=== PATIENT | male | born 1995 | race African-American/Black ===

== ENCOUNTER 2016-11-23 02:34 | Emergency (ER) | payer MEDICAID ==
[2016-11-23] MEDS ORDERED: OLANZapine 10 MG/2 ML VIAL IM ONE ×2 (02:49→03:18)
[2016-11-23] MEDS ORDERED: LORazepam 2 MG/ML INJ ONE (02:51)
--- NOTE | 2016-11-23 03:01 | EDPHY ---
HPI/HX/ROS/PE/MDM Narrative: Chief complaint: Suicidal, aggressive, alcohol intoxication HPI: 21-year-old male was brought to the crisis center by a friend after expressing suicidal ideation. Patient reports that he witnessed a friend a week ago and is feeling suicidal and angry about this. Patient does admit to drinking alcohol this morning. At the crisis Center patient was agitated and police were called. He has been placed on a mental health hold by the police department. Patient also states that he does have a history of schizophrenia but is declining answer as to whether he is taking medications. Denies any recent injuries. Denies any other ingestions other than alcohol. No fevers or chills. No chest pain or shortness of breath . No nausea or vomiting. Patient is not answering any further questions . Review of systems is unobtainable as the patient is uncooperative Physical exam: Gen: Awake, Alert, agitated, insulting profane, smells of alcohol HEENT: Nose: no rhinorrhea Eyes: PERRLA, EOMI Mouth: Moist mucosa Neck: Supple, no JVD Chest: No distress Heart: Normal perfusion Abd: Normal inspection Ext: no edema Skin: no rash Neuro: CN II-XII intact, Sensation grossly intact, Strength 5/5 in bilateral upper and lower extremities (Elvis Vivar) ED Course: 21-year-old intoxicated male with suicidal ideation and agitation. He has been given Zyprexa and Ativan here. Blood in urine have been sent for medical clearance. He has been placed on a mental health hold by police. Pt is sleeping s/p zyprexa and ativan IM. Arousable. EtOH 232. 0700 Pt s/o to Dr Tripathi pending evaluation. (Elvis Vivar) I assumed care of the patient at 0700 pending psychiatric placement. 11:15 a.m.: The patient's breath alcohol level is 0.09. We are waiting further sobriety. I evaluated the patient at 2:30 p.m.. He is adamant that he is not suicidal and would like to be discharged home. The patient does contract for safety. The patient denies making any suicidal statements. He does report having some situational anxiety over seen at a friend who committed suicide. The patient will be discharged and is given follow up with the mental health center. He is given customary return precautions. I have vacated his M1 hold at 2:30 p.m.. (Roberto Tripathi) - Data Points Laboratory Results: Laboratory Results 11/23/16 03:05 11/23/16 03:05 11/23/16 03:05 WBC 6.76 10^3/uL (3.80-9.50) RBC 5.28 10^6/uL (4.40-6.38) Hgb 15.7 g/dL (13.7-17.5) Hct 47.4 % (40.0-51.0) MCV 89.8 fL (81.5-99.8) MCH 29.7 pg (27.9-34.1) MCHC 33.1 g/dL (32.4-36.7) RDW 13.4 % (11.5-15.2) Plt Count 280 10^3/uL (150-400) MPV 9.9 fL (8.7-11.7) Neut % (Auto) 49.0 % (39.3-74.2) Lymph % (Auto) 36.4 % (15.0-45.0) Gove % (Auto) 11.1 % (4.5-13.0) Eos % (Auto) 2.2 % (0.6-7.6) Baso % (Auto) 1.0 % (0.3-1.7) Nucleat RBC Rel Count 0.0 % (0.0-0.2) Absolute Neuts (auto) 3.31 10^3/uL (1.70-6.50) Absolute Lymphs (auto) 2.46 10^3/uL (1.00-3.00) Absolute Monos (auto) 0.75 10^3/uL (0.30-0.80) Absolute Eos (auto) 0.15 10^3/uL (0.03-0.40) Absolute Basos (auto) 0.07 10^3/uL (0.02-0.10) Absolute Nucleated RBC 0.00 10^3/uL (0-0.01) Immature Gran % 0.3 % (0.0-1.1) Immature Gran # 0.02 10^3/uL (0.00-0.10) Sodium 149 H mEq/L (134-144) Potassium 4.6 mEq/L (3.5-5.2) Chloride 111 H mEq/L (97-110) Carbon Dioxide 22 mEq/l (22-31) Anion Gap 16 mEq/L (8-16) BUN 7 mg/dL (7-23) Creatinine 1.2 mg/dL (0.7-1.3) Estimated GFR > 60 Glucose 81 mg/dL (70-100) Calcium 9.2 mg/dL (8.5-10.4) Ethyl Alcohol 232 H mg/dL (0-10) Medications Given: Discontinued Medications Lorazepam (Ativan Injection) 2 mg IM EDNOW ONE Stop: 11/23/16 03:19 Last Admin: 11/23/16 03:10 Dose: 2 mg Olanzapine (Zyprexa Im Injection) 10 mg IM EDNOW ONE Stop: 11/23/16 03:19 Last Admin: 11/23/16 03:10 Dose: 10 mg General Time Seen by Provider: 11/23/16 02:37 Initial Vital Signs: Initial Vital Signs Temperature (C) 36.8 C 11/23/16 03:00 Heart Rate 97 11/23/16 03:00 Respiratory Rate 16 11/23/16 03:00 Blood Pressure 121/81 H 11/23/16 03:00 O2 Sat (%) 97 11/23/16 03:00 O2 Delivery Mode Nasal Cannula O2 (L/minute) 2 Allergies/Adverse Reactions: No Known Allergies Allergy (Verified 10/20/16 21:56) Home Medications: Medication Instructions Recorded Hydrocodone/APAP 5/325 [[place] 1 tab PO Q6 PRN #15 tab 10/05/16 5/325 (RX)] Albuterol 10/09/16 Hydrocodone/Acetaminophen [[place] 1 each PO Q8 #10 tablet 10/20/16 10-325 Tablet] Departure - Departure Disposition: Home, Routine, Self-Care Clinical Impression: Alcohol intoxication Condition: Fair Instructions: Alcohol Intoxication (ED) Additional Instructions: 1. Please follow-up with the mental health resources provided in the ED today. 2. [facility] does operate a 15/05 psychiatric crisis unit located at [address] [place] [address]. The telephone number for the 24 hour crisis center is [phone]. 3. Please return to the ED if you are feeling suicidal, having thoughts of harming yourself/others or should you feel unsafe or have worsening symptoms. Referrals: [facility] [Outside] - As per Instructions
[2016-11-23 03:12] LABS: % IMMATURE GRANULYOCYTES 0.3 % (0.0-1.1); ABSOLUTE IMMATURE GRANULOCYTES 0.02 10^3/uL (0.00-0.10); ADD DIFF? NO; ADD MORPH? NO; ADD SCAN? NO; ATYPICAL LYMPHOCYTE FLAG 60 (0-99); FRAGMENT RBC FLAG 0 (0-99); HEMATOCRIT 47.4 % (40.0-51.0); HEMOGLOBIN 15.7 g/dL (13.7-17.5); LEFT SHIFT FLG 0 (0-99); LIPEMIA HEMOLYSIS FLAG 80 (0-99); MEAN CELL HEMOGLOBIN 29.7 pg (27.9-34.1); MEAN CELL HEMOGLOBIN CONCENTR. 33.1 g/dL (32.4-36.7); MEAN CELL VOLUME 89.8 fL (81.5-99.8); MEAN PLATELET VOLUME 9.9 fL (8.7-11.7); PLATELET CLUMPS FLAG 30 (0-99); PLATELET COUNT 280 10^3/uL (150-400); RED BLOOD CELL COUNT 5.28 10^6/uL (4.40-6.38); RED CELL DISTRIBUTION WIDTH 13.4 % (11.5-15.2)
[2016-11-23] MEDS ORDERED: LORazepam 2 MG/ML INJ IM ONE (03:18)
[2016-11-23 03:30] LABS: ANION GAP 16 mEq/L (8-16); CALCIUM 9.2 mg/dL (8.5-10.4); CARBON DIOXIDE 22 mEq/l (22-31); CHLORIDE 111 mEq/L (97-110); CREATININE 1.2 mg/dL (0.7-1.3); ETHANOL SERUM 232 mg/dL (0-10); GLOMERULAR FILTRATION RATE > 60; GLUCOSE 81 mg/dL (70-100); POTASSIUM 4.6 mEq/L (3.5-5.2); SODIUM 149 mEq/L (134-144)
[2016-11-23 12:22] VITALS: RESP 16
[2016-11-23 14:43] VITALS: BP 130/92; PULSE 93; TEMP 97.2; O2SAT 93
== END 2016-11-23 15:13 | disposition home or self-care (01) ==
LOC: EDUNIT#
DX: F10.129 Alcohol abuse with intoxication, unspecified (principal)
CPT/HCPCS: 80305; G0480

== ENCOUNTER 2017-07-30 03:00 | Emergency (ER) | payer MEDICAID ==
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
[2017-07-30 03:26] VITALS: RESP 20
[2017-07-30] MEDS: IBUPROFEN 200 MG TAB PO ONE (03:33)
[2017-07-30 04:21] VITALS: BP 126/85; PULSE 97; TEMP 98.6; O2SAT 93
== END 2017-07-30 04:20 | disposition home or self-care (01) ==
LOC: EDUNIT#
DX: S62.511A Displaced fracture of proximal phalanx of right thumb, initial encounter for closed fracture (principal); J45.909 Unspecified asthma, uncomplicated; F17.200 Nicotine dependence, unspecified, uncomplicated; Y04.0XXA Assault by unarmed brawl or fight, initial encounter

== ENCOUNTER 2017-09-10 02:38 | Emergency (ER) | payer MEDICAID ==
[2017-09-10 02:42] VITALS: BP 121/79; PULSE 106; RESP 16; TEMP 98.4; O2SAT 93
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
[2017-09-10] MEDS ORDERED: IBUPROFEN 800 MG TAB PO ONE (03:16)
== END 2017-09-10 03:34 | disposition home or self-care (01) ==
PROC: 0CQ1XZZ Repair Lower Lip, External Approach (ICD-10-PCS; principal; 2017-09-10)
DX: S01.511A Laceration without foreign body of lip, initial encounter (principal); J45.909 Unspecified asthma, uncomplicated; F17.200 Nicotine dependence, unspecified, uncomplicated; V00.131A Fall from skateboard, initial encounter; Y92.009 Unspecified place in unspecified non-institutional (private) residence as the place of occurrence of the external cause; Y93.51 Activity, roller skating (inline) and skateboarding

== ENCOUNTER 2018-02-25 08:05 | Emergency (ER) | payer MEDICAID ==
[2018-02-25] MEDS ORDERED: DIAZEPAM 5 MG/ML 1 ML SYR IVP ONE (08:26)
--- NOTE | 2018-02-25 08:26 | EDPHY ---
General Time Seen by Provider: 02/25/18 08:19 Narrative: CHIEF COMPLAINT: Right neck cramping and pain HISTORY OF PRESENT ILLNESS: Patient complains of right-sided neck pain, cramping and spasm. Symptoms started 3 days ago. He awoke that morning with the symptoms. They have been constant duration. Rated as severe. No position of comfort, but does have some mild improvement when he lays at rest on a pillow. He has no fever chills. The right-sided pain radiates up into the head and into the upper chest with movement. No headache or chest pain at rest. No trauma or injury. REVIEW OF SYSTEMS: Ten systems reviewed and are negative unless otherwise noted in the HPI PCP: None SPECIALISTS: None PAST MEDICAL HISTORY: No ongoing medical diagnoses. Orthopedic injuries in the past PAST SURGICAL HISTORY: ACL reconstruction 2010 SOCIAL HISTORY: Smokes cigarettes. Occasional marijuana and alcohol use. Lives and works here locally. FAMILY HISTORY: Noncontributory EXAMINATION General Appearance: Alert, no distress Head: normocephalic, atraumatic Eyes: Pupils equal and round, no conjunctival pallor or injection ENT, Mouth: Mucous membranes moist. Uvula is midline and airway is widely patent. No asymmetry of the posterior pharynx Neck: Normal inspection. No midline tenderness. No crepitus or deformity. There is anterior cervical lymphadenopathy on the right. There is tenderness of the right sternocleidomastoid and right trapezius. Spasms palpated. There is no tenderness of the left sternocleidomastoid or trapezius. No nuchal rigidity with passive range of motion. Respiratory: Lungs are clear to auscultation Cardiovascular: Regular rate and rhythm. No murmur Back: non-tender, no bony abnormalities Neurological: A&O, nonfocal, normal gait. Strength is symmetric in the upper extremities. Skin: Warm and dry, no rash. No petechiae or purpura. No cellulitis or palpable fluctuance of the neck Extremities: Nontender, no pedal edema Psychiatric: Mood and affect normal DIFFERENTIAL DIAGNOSES: Including but not limited to torticollis, muscle spasm, cramp, electrolyte disturbance, rhabdomyolysis, meningitis, strain MDM: 8:20 a.m. Right-sided neck spasm and cramping with exam consistent with a mild torticollis. Patient has limited range of motion due to this. He has no nuchal rigidity when resting and with passive range of motion. He does feel much better when lying still. I have ordered Valium, and I will verify his electrolyte status. He is in no acute distress. I feel that meningitis is highly unlikely given his history, exam and right unilateral symptoms. 9:20 a.m. BMP is unremarkable. Magnesium and CPK are both within normal limits. Patient re-evaluated. He is starting to improve. He still has some discomfort but he is able to range his neck without any pain at this time. Still feels some spasm and swelling. We discussed discharge home with further Valium as needed. We discussed strict ED precautions for any worsening pain, difficulty breathing or swallowing. Discussed returning here tomorrow morning if he does not have complete resolution of his pain. He is comfortable this plan and discharged home stable condition. SUPERVISION: This patient was independently evaluated without direct involvement of or examination by the attending physician. - History Smoking Status: Current every day smoker - Objective Vital Signs: Initial Vital Signs Temperature (C) 98.2 F 02/25/18 08:08 Heart Rate 96 02/25/18 08:08 Respiratory Rate 17 02/25/18 08:08 Blood Pressure 133/86 H 02/25/18 08:08 O2 Sat (%) 99 02/25/18 08:08 O2 Delivery Mode Room Air Allergies/Adverse Reactions: No Known Allergies Allergy (Verified 02/25/18 08:07) Home Medications: Medication Instructions Recorded Diazepam [Valium 5 MG (*)] 5 mg PO TID PRN #7 tab 02/25/18 Laboratory Results: Laboratory Results 02/25/18 08:40 02/25/18 08:40 Sodium 139 mEq/L mEq/L (135-145) Potassium 4.1 mEq/L mEq/L (3.5-5.2) Chloride 98 mEq/L mEq/L (97-110) Carbon Dioxide 26 mEq/l mEq/l (22-31) Anion Gap 15 mEq/L mEq/L (8-16) BUN 11 mg/dL mg/dL (7-23) Creatinine 1.1 mg/dL mg/dL (0.7-1.3) Estimated GFR > 60 Glucose 75 mg/dL mg/dL (70-100) Calcium 9.2 mg/dL mg/dL (8.5-10.4) Magnesium 1.9 mg/dL mg/dL (1.6-2.3) Creatine Kinase 99 IU/L IU/L (0-224) Medications Given: Discontinued Medications Diazepam (Valium) 5 mg IVP EDNOW ONE Stop: 02/25/18 08:27 Last Admin: 02/25/18 08:38 Dose: 5 mg Sodium Chloride (Ns) 1,000 mls @ 0 mls/hr IV EDNOW ONE; Wide Open PRN Reason: Protocol Stop: 02/25/18 08:28 Last Admin: 02/25/18 08:37 Dose: 1,000 mls Departure - Departure Disposition: Home, Routine, Self-Care Clinical Impression: Torticollis, acute Condition: Good Instructions: Spasmodic Torticollis (ED) Additional Instructions: 1. Aleve [id number]. Two pills by mouth twice daily for 5-7 days 2. Valium every 8 hr as prescribed as needed for spasm or pain 3. Return to the emergency department on Monday morning if you do not have complete resolution of your symptoms 4. Return to emergency department immediately for any worsening pain or swelling , fever, neck stiffness, difficulty breathing or swallowing Referrals: Pillo Vance, [Medical Doctor] - As per Instructions Stand Alone Forms: Work Excuse Prescriptions: Diazepam [Valium 5 MG (*)] 5 mg PO TID PRN #7 tab PRN Reason: Spasms
[2018-02-25] MEDS ORDERED: NS 1,000 ML IV ONE (08:27)
[2018-02-25 09:07] LABS: CREATINE KINASE 99 IU/L (0-224)
[2018-02-25 09:52] VITALS: BP 128/65
== END 2018-02-25 09:52 | disposition home or self-care (01) ==
DX: M43.6 Torticollis (principal); E86.9 Volume depletion, unspecified; F17.210 Nicotine dependence, cigarettes, uncomplicated
CPT/HCPCS: 96374; J3360